=== PATIENT | male | born 1955 | race Caucasian/White ===

== ENCOUNTER 2017-03-17 12:50 | Emergency (ER) | payer OTHER, MEDICAID | END 2017-03-17 13:55 | disposition home or self-care (01) | LOC: LB.ED 12:50 | DX: Z53.21 Procedure and treatment not carried out due to patient leaving prior to being seen by health care provider (principal) ==

== ENCOUNTER 2017-03-18 07:27 | Emergency (ER) | payer MEDICAID ==
--- NOTE | 2017-03-21 08:50 | ER ---
HISTORY OF PRESENT ILLNESS: This 61-year-old male here with complaints of bilateral hand pain and tightness of the hands when he makes a fist. The patient states he woke up with it this morning. He did not have these symptoms yesterday. The patient did have an injury yesterday where he sustained a laceration to the left thumb. He was seen in the emergency room yesterday and he was sutured. The patient is concerned that he is having a heart attack. He has really not had much in terms of chest pain, but he states he did have a little discomfort in the chest yesterday on one or maybe two occasions. The patient has been heavy smoker most of his life. He tells me that he has a lot of family history of heart problems, and he really is worried about having heart attack today. The patient has not any had any problems with nausea, coughing, chest discomfort, visual changes. He has not felt sweaty. He notices that his blood pressure is also high and it was high yesterday as well. He has been on amlodipine 5 mg a day. He took 1-1/2 tablets this morning. He also is on Flomax and Cialis. OBJECTIVE: GENERAL APPEARANCE: The patient is awake and alert. He is pleasant and talkative. VITAL SIGNS: Reviewed as listed. Blood pressure is 169/106. EARS: TMs are normal. Nares are patent. Oral mucous membranes are moist. Tonsils not enlarged or injected. Pharynx not inflamed. NECK: Supple. LUNGS: Clear to auscultation with slightly reduced air exchange throughout the lung shelby. CARDIAC: Heart sounds distinct. S1, S2 present. Regular rate. No murmurs. SKIN: Warm and dry. EXTREMITIES: Examining the patient's hands reveals swelling over the dorsal aspect of both hands. He has multiple abrasion injuries to both hands as well. There is a dressing on the left thumb from yesterday's laceration. The skin on the dorsal aspect of the right hand is slightly dusky in nature and warm to touch. LAB AND X-RAY: An EKG shows a normal sinus rhythm. Labs today include a CBC showing a slightly elevated white count of 11.9, neutrophils are also elevated at 76.1. Comprehensive metabolic panel shows an AST of 148, ALT of 153. Troponin is normal. DIAGNOSES: 1. Hand swelling. This could possibly be due to the patient's injuries plus he tells me he worked a [employer] yesterday for several hours and also could be somewhat connected with his increased dose of Norvasc. 2. Hepatitis. The patient tells me he does have history of hepatitis C and has never been treated for it. 3. Hypertension. The patient's blood pressure was rechecked with a reading of 149/100. TREATMENT PLAN: We will change the patient's blood pressure medicine, stopping the Norvasc and starting him on, initially was going to go with [facility], but his insurance will not cover this. We therefore will go with high Hyzaar 50/12.5 one tablet a day for 15 tablets. I do want the patient to follow up in the next week or so for recheck in the clinic with either myself or his primary care provider, whom he tells as Dr. Ramos. I advised the patient that he really needs to consider stopping smoking. He is currently smoking about a pack a day. He tells me that he used to smoke 3 packs a day. The patient can continue with activity as tolerated, and I will lastly put him on Augmentin for one week for what looks like developing stages of mild cellulitis infection. CRS/MODL /[id number]
== END 2017-03-18 08:55 | disposition home or self-care (01) ==
LOC: LB.ED 07:27
DX: M79.89 Other specified soft tissue disorders (principal); K75.9 Inflammatory liver disease, unspecified; I10 Essential (primary) hypertension
CPT/HCPCS: 36415; 80053; 84484; 85025; 93005; 99283-25

== ENCOUNTER 2017-03-22 15:16 | Emergency (ER) | payer MEDICAID ==
--- NOTE | 2017-03-22 15:41 | EDM.PDOCBH ---
ED HPI GENERAL MEDICAL PROBLEM - General Chief Complaint: Behavioral/Psych Stated Complaint: anxiety Time Seen by Provider: 03/22/17 15:20 Source of Information: Reports: Patient, RN History Limitations: Reports: No Limitations - History of Present Illness INITIAL COMMENTS - FREE TEXT/NARRATIVE: 61 yr male presents with anxiety and states he "lashed out" at a customer today at the [employer] he [place] for. States he is a few months behind his payments and feel bad. States he wasn't aware of what he needed to do at work today and then became angry with change in his schedule. States this isn't like him and he is never like this. States he hasn't had any alcohol for 2 years, recently found out about his diagnosis of Hep C and unable to have any treatment yet r/t insurance issues. He needs to contact [employer] and check on this. PHQ-9 completed and scored today, consistent with moderately severe depression. States little sleep, hard to concentrate, and overwhelmed. He had quit taking escitalopram in June 2016 and had doing ok until now. States he had back surgery in September and his tingling/numbness is better, but still has some muscle cramps to his legs and chest occasionally. Declines therapy counseling. Declines assist with inpatient care for behavioral health. He would be ok with restarting his medication. Onset: Today Onset Date: 03/22/17 - Related Data Allergies Allergy/AdvReac Type Severity Reaction Status Date / Time No Known Allergies Allergy Verified 03/18/17 07:38 Home Meds: Home Meds Tadalafil [Cialis] 5 mg PO DAILY 04/04/15 [History] amLODIPine Besylate [Amlodipine Besylate] 1.5 tab PO DAILY 04/04/15 [History] Tamsulosin HCl [Tamsulosin HCl] 0.4 mg PO DAILY 03/18/17 [History] Past Medical History HEENT History: Reports: Hard of Hearing Cardiovascular History: Reports: None Respiratory History: Reports: None Musculoskeletal History: Reports: Back Pain, Chronic Oncologic (Cancer) History: Reports: None - Past Surgical History Other Respiratory Surgeries/Procedures: 1 pack / day Other Neurological Surgeries/Procedures: decrease in sensation B LEs Other Musculoskeletal Surgeries/Procedures:: chronic LBP, hip pain, intermittant knee pain. past PT: yes. no chiropractic intervention. fall status: several past winter, no injury reported Social & Family History - Tobacco Use Smoking Status *Q: Current Every Day Smoker ED ROS GENERAL - Review of Systems Review Of Systems: See Below Constitutional: Reports: No Symptoms HEENT: Reports: No Symptoms Respiratory: Reports: No Symptoms Cardiovascular: Reports: No Symptoms GI/Abdominal: Reports: No Symptoms : Reports: No Symptoms Musculoskeletal: Reports: Other (occasional muscle cramps) Neurological: Reports: Confusion Psychiatric: Reports: Anxiety, Depression ED EXAM, BEHAVIORAL HEALTH - Physical Exam Exam: See Below Exam Limited By: No Limitations General Appearance: Alert, No Apparent Distress, Anxious Nose: Normal Inspection Throat/Mouth: Normal Inspection Head: Atraumatic Respiratory/Chest: No Respiratory Distress Neurological: Alert, Normal Cognition Psychiatric: Alert, Agitated Skin Exam: Warm, Dry, Normal color Departure - Departure Time of Disposition: 15:41 Disposition: Home, Self-Care 01 Condition: Good Clinical Impression: Anxiety, Depressive disorder - Discharge Information Referrals: PCP,None [Primary Care Provider] - Forms: ED Department Discharge - Problem List & Annotations (1) Anxiety SNOMED Code(s): 53320214 Code(s): F41.9 - ANXIETY DISORDER, UNSPECIFIED Status: Acute Current Visit: Yes (2) Depressive disorder SNOMED Code(s): 63402339 Code(s): F32.9 - MAJOR DEPRESSIVE DISORDER, SINGLE EPISODE, UNSPECIFIED Status: Acute Current Visit: Yes - Problem List Review Problem List Initiated/Reviewed/Updated: Yes - Assessment/Plan Plan: Anxiety and depression: Rx Escitalopram 10 mg PO daily. F/U with PCP next week. Declines counselor at this time. Declines inpatient care for behavioral health concerns. Discharge to self care.
== END 2017-03-22 15:41 | disposition home or self-care (01) ==
LOC: LB.ED 15:16
DX: F41.9 Anxiety disorder, unspecified (principal); F32.9 Major depressive disorder, single episode, unspecified; F17.210 Nicotine dependence, cigarettes, uncomplicated; Z79.899 Other long term (current) drug therapy
CPT/HCPCS: 99283

== ENCOUNTER 2017-09-11 13:43 | Emergency (ER) | payer MEDICAID ==
--- NOTE | 2017-09-11 14:43 | EDM.PDOC ---
ED HPI GENERAL MEDICAL PROBLEM - General Chief Complaint: General Stated Complaint: INSOMNIA Time Seen by Provider: 09/11/17 13:45 Source of Information: Reports: Patient History Limitations: Reports: No Limitations - History of Present Illness INITIAL COMMENTS - FREE TEXT/NARRATIVE: According to patient he claims that he has been having difficulty with sleep for about 1 year now.He claims he only sleep 4-6 hrs. He claims that he feels like he is not sleeping enough. No excessive daytime sleeping.He has tried OTC meds with not much help . No depression. No anxiety . No other complaints. Duration: Other (for about 1 year) Severity: Mild Improves with: Reports: None Worsens with: Reports: None Associated Symptoms: Denies: Confusion, Fever/Chills, Headaches, Malaise, Nausea /Vomiting, Rash, Seizure, Shortness of Breath, Syncope general' Pain Score (Numeric/FACES): 3 - Related Data Allergies Allergy/AdvReac Type Severity Reaction Status Date / Time No Known Allergies Allergy Verified 09/11/17 14:04 Home Meds: Home Meds Tadalafil [Cialis] 5 mg PO DAILY 04/04/15 [History] amLODIPine Besylate [Amlodipine Besylate] 1.5 tab PO DAILY 04/04/15 [History] Tamsulosin HCl 0.4 mg PO DAILY 03/18/17 [History] Past Medical History HEENT History: Reports: Hard of Hearing Cardiovascular History: Reports: None Respiratory History: Reports: None Musculoskeletal History: Reports: Back Pain, Chronic Oncologic (Cancer) History: Reports: None - Past Surgical History Other Respiratory Surgeries/Procedures: 1 pack / day Other Neurological Surgeries/Procedures: decrease in sensation B LEs Other Musculoskeletal Surgeries/Procedures:: chronic LBP, hip pain, intermittant knee pain. past PT: yes. no chiropractic intervention. fall status: several past winter, no injury reported ED ROS GENERAL - Review of Systems Review Of Systems: See Below Constitutional: Denies: Fever, Malaise, Weakness, Diaphoresis HEENT: Denies: Vision Change Respiratory: Denies: Cough, Sputum Cardiovascular: Denies: Chest Pain, Lightheadedness Endocrine: Denies: Fatigue GI/Abdominal: Denies: Abdominal Pain, Nausea, Vomiting Musculoskeletal: Denies: Foot Pain, Joint Pain Neurological: Denies: Confusion, Dizziness, Headache, Numbness Psychiatric: Denies: Agitation, Anxiety, Confusion, Depression ED EXAM, GENERAL - Physical Exam Exam: See Below Exam Limited By: No Limitations General Appearance: Alert, WD/WN, No Apparent Distress Eye Exam: Bilateral Eye: EOMI, PERRL Ears: Normal External Exam, Normal Canal, Hearing Grossly Normal, Normal TMs Ear Exam: Bilateral Ear: Auricle Normal, Canal Normal, TM normal Nose: Normal Inspection, Normal Mucosa, No Blood Throat/Mouth: Normal Inspection, Normal Lips, Normal Teeth, Normal Gums, Normal Oropharynx, Normal Voice, No Airway Compromise Head: Atraumatic, Normocephalic Neck: Normal Inspection, Supple, Non-Tender, Full Range of Motion Respiratory/Chest: No Respiratory Distress, Lungs Clear, Normal Breath Sounds, No Accessory Muscle Use, Chest Non-Tender Cardiovascular: Normal Peripheral Pulses, Regular Rate, Rhythm, No Edema, No Gallop, No JVD, No Murmur, No Rub Neurological: Alert Psychiatric: Normal Affect, Normal Mood Course - Vital Signs Text/Narrative:: Pt has chronic insomnia. I have started him on trazodone 50mg at bedtime. Sleep hygiene discussed. Also script for trazodone given. Pt advised to followup in clinic. Last Recorded V/S: Last Vital Signs Temp Pulse 68 09/11/17 13:59 Resp BP 157/101 H 09/11/17 13:59 Pulse Ox 98 09/11/17 13:59 Departure - Departure Time of Disposition: 14:30 Disposition: Home, Self-Care 01 Condition: Fair Clinical Impression: Insomnia - Discharge Information Instructions: Trazodone tablets, Insomnia Forms: ED Department Discharge Additional Instructions: Follow up in the clinic in a week with your primary care provider. Only take the trazadone at night, fill the script tomorrow. - Problem List & Annotations (1) Insomnia SNOMED Code(s): 212755282 Code(s): G47.00 - INSOMNIA, UNSPECIFIED Status: Acute - Problem List Review Problem List Initiated/Reviewed/Updated: Yes - Assessment/Plan Assessment:: chronic Insomnia Plan: Pt has chronic insomnia. I have started him on trazodone 50mg at bedtime. Sleep hygiene discussed. Also script for trazodone given. Pt advised to followup in clinic
[2017-09-11] MEDS ORDERED: traZODone 50 MG Tab ONE (14:50)
== END 2017-09-11 14:24 | disposition home or self-care (01) ==
LOC: LB.ED 13:43
DX: F51.04 Psychophysiologic insomnia (principal); Z79.899 Other long term (current) drug therapy
CPT/HCPCS: 99283; A9270